=== PATIENT | female | born 1955 | race Caucasian/White ===

== ENCOUNTER 2016-04-21 10:52 | Inpatient (IN) | payer MEDICARE, MEDICAID ==
[~2016-04-21 10:52] MED LIST: MAGOX PO; METF850T PO; PANT40TA PO; RISP3TAB44 PO
[2016-04-21] MEDS ORDERED: HALOPERIDOL 5 MG TABLET PO PRN (11:00)
[2016-04-21] MEDS ORDERED: DiphenhydrAMINE HCL 50 MG/ML VIAL IM ONE (11:00)
[2016-04-21] MEDS ORDERED: ZOLPIDEM TARTRATE 10 MG TABLET PO PRN (11:00)
[2016-04-21] MEDS ORDERED: LORazepam 2 MG/ML VIAL IM ONE (11:00)
[2016-04-21] MEDS ORDERED: HALOPERIDOL LACTATE 5 MG/ML VIAL IM ONE (11:00)
[2016-04-21] MEDS ORDERED: INFLUENZA VIRUS VACCINE QVS 2016-17 (3YR+)/PF 60 MCG/0.5 ML SYRINGE IM ONE (12:45)
[2016-04-21] MEDS ORDERED: PNEUMOCOCCAL VACCINE POLYVALENT 0.5 ML VIAL [PPSV23] IM ONE (12:45)
[2016-04-21] MEDS: MAGNESIUM OXIDE 400 MG TABLET PO SCH ×2 (13:00→17:00)
[2016-04-21] MEDS: RisperiDONE 3 MG TABLET PO SCH (17:00)
[2016-04-21] MEDS ORDERED: LORazepam 2 MG/ML VIAL ONE (17:12)
[2016-04-21] MEDS ORDERED: DiphenhydrAMINE HCL 50 MG/ML VIAL ONE (17:12)
[2016-04-21] MEDS ORDERED: HALOPERIDOL LACTATE 5 MG/ML VIAL ONE (17:12)
[2016-04-22] MEDS: MetFORMIN HCL 850 MG TABLET PO SCH ×2 (07:00→17:00)
[2016-04-22] MEDS: PANTOPRAZOLE SODIUM 40 MG DR TABLET PO SCH (09:00)
[2016-04-22] MEDS: MAGNESIUM OXIDE 400 MG TABLET PO SCH ×3 (09:00→17:00)
[2016-04-22] MEDS: RisperiDONE 3 MG TABLET PO SCH ×2 (09:00→17:00)
[2016-04-22] MEDS: LamoTRIgine 25 MG TABLET PO SCH (17:00)
[2016-04-22] MEDS ORDERED: LamoTRIgine 25 MG TABLET ONE (23:33)
[2016-04-23] MEDS: MetFORMIN HCL 850 MG TABLET PO SCH ×2 (07:00→17:00)
[2016-04-23] MEDS: PANTOPRAZOLE SODIUM 40 MG DR TABLET PO SCH (09:00)
[2016-04-23] MEDS: LamoTRIgine 25 MG TABLET PO SCH ×2 (09:00→17:00)
[2016-04-23] MEDS: MAGNESIUM OXIDE 400 MG TABLET PO SCH ×3 (09:00→17:00)
[2016-04-23] MEDS: RisperiDONE 3 MG TABLET PO SCH ×2 (09:00→17:00)
[2016-04-24] MEDS: MetFORMIN HCL 850 MG TABLET PO SCH ×2 (07:00→17:00)
[2016-04-24] MEDS: RisperiDONE 3 MG TABLET PO SCH ×2 (09:00→17:00)
[2016-04-24] MEDS: MAGNESIUM OXIDE 400 MG TABLET PO SCH ×3 (09:00→17:00)
[2016-04-24] MEDS: PANTOPRAZOLE SODIUM 40 MG DR TABLET PO SCH (09:00)
[2016-04-25] MEDS: MetFORMIN HCL 850 MG TABLET PO SCH ×2 (06:35→17:00)
[2016-04-25] MEDS: MAGNESIUM OXIDE 400 MG TABLET PO SCH ×3 (08:50→17:00)
[2016-04-25] MEDS: PANTOPRAZOLE SODIUM 40 MG DR TABLET PO SCH (08:50)
[2016-04-25] MEDS: RisperiDONE 3 MG TABLET PO SCH ×2 (08:51→17:00)
[2016-04-25] MEDS ORDERED: INSULIN ASPART 100 UNITS/ML SQ PRN (09:45)
[2016-04-25] MEDS ORDERED: GLUCAGON,HUMAN RECOMBINANT 1 MG VIAL IM PRN (09:45)
[2016-04-26] MEDS: MetFORMIN HCL 850 MG TABLET PO SCH ×2 (07:00→17:00)
[2016-04-26] MEDS: MAGNESIUM OXIDE 400 MG TABLET PO SCH ×3 (08:44→17:00)
[2016-04-26] MEDS: PANTOPRAZOLE SODIUM 40 MG DR TABLET PO SCH (08:44)
[2016-04-26] MEDS: RisperiDONE 3 MG TABLET PO SCH ×2 (08:44→17:00)
[2016-04-27] MEDS: MetFORMIN HCL 850 MG TABLET PO SCH ×2 (07:00→16:14)
[2016-04-27] MEDS: MAGNESIUM OXIDE 400 MG TABLET PO SCH ×3 (09:00→16:26)
[2016-04-27] MEDS ORDERED: HALOPERIDOL LACTATE 5 MG/ML VIAL IM PRN (09:45)
[2016-04-27] MEDS: RisperiDONE 3 MG TABLET PO SCH ×3 (10:44→17:00)
[2016-04-27 16:04] VITALS: BP 117/69
[2016-04-28] MEDS: MetFORMIN HCL 850 MG TABLET PO SCH ×2 (06:54→16:40)
[2016-04-28 08:30] VITALS: BP 105/60
[2016-04-28] MEDS: MAGNESIUM OXIDE 400 MG TABLET PO SCH ×3 (09:28→16:11)
[2016-04-28] MEDS: RisperiDONE 3 MG TABLET PO SCH ×2 (09:28→16:11)
[2016-04-29] MEDS: MetFORMIN HCL 850 MG TABLET PO SCH ×2 (06:52→17:22)
[2016-04-29] MEDS: LORazepam 2 MG TABLET PO PRN (09:54)
[2016-04-29] MEDS: MAGNESIUM OXIDE 400 MG TABLET PO SCH ×3 (09:54→17:22)
[2016-04-29] MEDS: RisperiDONE 3 MG TABLET PO SCH ×2 (09:54→17:22)
[2016-04-30] MEDS: MetFORMIN HCL 850 MG TABLET PO SCH ×2 (06:44→16:53)
[2016-04-30] MEDS: RisperiDONE 3 MG TABLET PO SCH ×2 (09:27→16:25)
[2016-04-30] MEDS: LORazepam 2 MG TABLET PO PRN ×2 (09:27→16:26)
[2016-04-30] MEDS: MAGNESIUM OXIDE 400 MG TABLET PO SCH ×3 (09:27→16:26)
[2016-04-30 16:35] VITALS: BP 111/76
[2016-05-01] MEDS: MetFORMIN HCL 850 MG TABLET PO SCH ×2 (06:53→16:59)
[2016-05-01 08:36] VITALS: BP 128/74
[2016-05-01] MEDS: RisperiDONE 3 MG TABLET PO SCH ×2 (08:56→16:59)
[2016-05-01] MEDS: MAGNESIUM OXIDE 400 MG TABLET PO SCH ×3 (08:56→16:59)
[2016-05-01] MEDS ORDERED: ACETAMINOPHEN 325 MG TABLET PO PRN (14:30)
[2016-05-01 16:07] VITALS: BP 119/81
[2016-05-02] MEDS: MetFORMIN HCL 850 MG TABLET PO SCH ×2 (06:25→16:33)
[2016-05-02 09:01] VITALS: BP 118/59
[2016-05-02] MEDS: RisperiDONE 3 MG TABLET PO SCH ×2 (09:03→16:30)
[2016-05-02] MEDS: MAGNESIUM OXIDE 400 MG TABLET PO SCH ×3 (09:08→16:29)
[2016-05-02] MEDS: LORazepam 2 MG TABLET PO PRN (09:09)
[2016-05-03] MEDS: MetFORMIN HCL 850 MG TABLET PO SCH ×2 (06:51→16:33)
[2016-05-03] MEDS: RisperiDONE 3 MG TABLET PO SCH ×2 (09:23→16:33)
[2016-05-03] MEDS: LORazepam 2 MG TABLET PO PRN (09:23)
[2016-05-03] MEDS: MAGNESIUM OXIDE 400 MG TABLET PO SCH ×3 (09:23→16:33)
[2016-05-03 16:11] VITALS: BP 122/62
[2016-05-04] MEDS: MetFORMIN HCL 850 MG TABLET PO SCH ×2 (06:36→16:31)
[2016-05-04 08:28] VITALS: BP 123/71
[2016-05-04] MEDS: RisperiDONE 3 MG TABLET PO SCH ×2 (08:58→16:31)
[2016-05-04] MEDS: MAGNESIUM OXIDE 400 MG TABLET PO SCH ×3 (09:05→16:31)
[2016-05-04] MEDS: LORazepam 2 MG TABLET PO PRN (09:09)
[2016-05-04 16:08] VITALS: BP 128/75
[2016-05-05] MEDS: MetFORMIN HCL 850 MG TABLET PO SCH ×2 (06:54→16:30)
[2016-05-05 07:05] VITALS: BP 120/76
[2016-05-05] MEDS: RisperiDONE 3 MG TABLET PO SCH ×2 (09:02→16:30)
[2016-05-05] MEDS: MAGNESIUM OXIDE 400 MG TABLET PO SCH ×3 (09:03→16:30)
[2016-05-05] MEDS: LORazepam 2 MG TABLET PO PRN (09:03)
[2016-05-05 16:14] VITALS: BP 126/68
[2016-05-06 00:35] VITALS: BP 106/71
[2016-05-06] MEDS: MetFORMIN HCL 850 MG TABLET PO SCH ×2 (06:54→16:33)
[2016-05-06 08:21] VITALS: BP 122/69
[2016-05-06] MEDS: MAGNESIUM OXIDE 400 MG TABLET PO SCH ×3 (08:43→16:12)
[2016-05-06] MEDS: LORazepam 2 MG TABLET PO PRN ×2 (08:43→16:12)
[2016-05-06] MEDS: RisperiDONE 3 MG TABLET PO SCH ×2 (08:43→16:12)
[2016-05-06 16:10] VITALS: BP 120/84
[2016-05-07 05:55] VITALS: BP 120/68
[2016-05-07] MEDS: MetFORMIN HCL 850 MG TABLET PO SCH ×2 (06:35→16:57)
[2016-05-07 08:21] VITALS: BP 126/71
[2016-05-07] MEDS: RisperiDONE 3 MG TABLET PO SCH ×2 (09:23→16:56)
[2016-05-07] MEDS: MAGNESIUM OXIDE 400 MG TABLET PO SCH ×3 (09:23→16:57)
[2016-05-07] MEDS: LORazepam 2 MG TABLET PO PRN (09:26)
[2016-05-07 16:35] VITALS: BP 128/80
[2016-05-08] MEDS: MetFORMIN HCL 850 MG TABLET PO SCH ×2 (06:47→17:01)
[2016-05-08 08:06] VITALS: BP 137/73
[2016-05-08] MEDS: MAGNESIUM OXIDE 400 MG TABLET PO SCH ×3 (08:14→16:15)
[2016-05-08] MEDS: RisperiDONE 3 MG TABLET PO SCH ×2 (08:14→16:15)
[2016-05-08] MEDS: LORazepam 2 MG TABLET PO PRN ×2 (08:39→16:15)
[2016-05-08 16:08] VITALS: BP 124/70
[2016-05-09 01:30] VITALS: BP 117/73
[2016-05-09] MEDS: MetFORMIN HCL 850 MG TABLET PO SCH (06:36)
[2016-05-09 08:04] LABS: BASOPHILS # (AUTO) 0.05 K/uL (0.00-0.20); BASOPHILS % (AUTO) 0.8 % (0.0-2.0); EOSINOPHILS # (AUTO) 0.19 K/uL (0.00-0.70); EOSINOPHILS % (AUTO) 3.04 % (1.0-6.0); HEMATOCRIT 40.3 % (36-46); HEMOGLOBIN 13.6 g/dL (12.0-16.0); LYMPHOCYTES # (AUTO) 2.3 K/uL (1.0-4.8); LYMPHOCYTES % (AUTO) 36.3 % (22.0-44.0); MEAN CORPUSCULAR HEMOGLOBIN 31.5 pg (26.0-34.0); MEAN CORPUSCULAR HGB CONC 33.8 G/dL (31.0-37.0); MEAN CORPUSCULAR VOLUME 93 fL (80-100); MONOCYTES # (AUTO) 0.5 K/uL (0.1-1.0); MONOCYTES % (AUTO) 7.2 % (2.0-9.0); NEUTROPHILS # (AUTO) 3.3 K/uL (1.8-7.7); NEUTROPHILS % (AUTO) 52.6 % (40.0-70.0); PLATELET COUNT (AUTO) 223 K/uL (150-450); RED BLOOD CELL COUNT(AUTO) 4.33 MIL/uL (4.00-5.20); RED CELL DISTRIBUTION WIDTH 13.7 % (11.5-14.5); WHITE BLOOD COUNT (AUTO) 6.3 K/uL (4.5-11.0)
[2016-05-09 08:40] LABS: HEMOGLOBIN A1C 6.9 % (4.5-6.2)
[2016-05-09 08:48] LABS: ALANINE AMINOTRANSFERASE 20 U/L (12-78); ALBUMIN 3.4 g/dL (3.4-5.0); ANION GAP 9 mmol/L (8-16); ASPARTATE AMINOTRANSFERASE 16 U/L (15-37); BILIRUBIN,TOTAL 0.2 mg/dL (0.1-1.0); CARBON DIOXIDE 27 mmol/L (22-29); CHLORIDE 103 mmol/L (98-107); CHOL/HDL RATIO 4.2 (3.9-5.7); CREATININE 0.52 mg/dL (0.60-1.30); GLOMERULAR FILTR. RATE CALC > 60 mL/min (>60); POTASSIUM 4.1 mmol/L (3.5-5.1); SODIUM SERUM 139 mmol/L (136-145); TOTAL PROTEIN, SERUM 7.1 g/dL (6.4-8.2); UREA NITROGEN, BLOOD 15 mg/dL (7-18)
[2016-05-09 09:02] VITALS: BP 136/80
[2016-05-09] MEDS: RisperiDONE 3 MG TABLET PO SCH (09:52)
[2016-05-09] MEDS: MAGNESIUM OXIDE 400 MG TABLET PO SCH (09:52)
== END 2016-05-09 15:45 | disposition home or self-care (01) | DRG 885 ==
LOC: B3A 11:07 → EDSTATUS 11:45
DX: F20.0 Paranoid schizophrenia (principal); D64.9 Anemia, unspecified; E03.9 Hypothyroidism, unspecified; E11.9 Type 2 diabetes mellitus without complications; E78.1 Pure hyperglyceridemia; E83.42 Hypomagnesemia; I10 Essential (primary) hypertension; J44.9 Chronic obstructive pulmonary disease, unspecified; F41.9 Anxiety disorder, unspecified; K21.9 Gastro-esophageal reflux disease without esophagitis; F17.200 Nicotine dependence, unspecified, uncomplicated; Z91.14 Patient's other noncompliance with medication regimen; Z88.8 Allergy status to other drugs, medicaments and biological substances; Z91.048 Other nonmedicinal substance allergy status; Z79.899 Other long term (current) drug therapy; Z28.21 Immunization not carried out because of patient refusal
CPT/HCPCS: 83036; J1200; J1630; J2060